=== PATIENT | male | born 1995 | race Caucasian/White ===

== ENCOUNTER 2017-09-30 23:55 | Emergency (ER) | payer OTHER ==
[2017-09-30 23:57] VITALS: BP 148/72; PULSE 99; RESP 18; TEMP 98.6; O2SAT 97
[2017-10-01] MEDS ORDERED: HYDR1SOL20 PO (00:18)
--- NOTE | 2017-10-01 00:18 | PD ---
HPI Chief Complaint: Cold / Flu Symptoms Time Seen by Provider: 00:08 Travel History International Travel<30 days: No Contact w/Intl Traveler<30days: No Traveled to known affect area: No History of Present Illness HPI Patient is a 21-year-old male presenting to the emergency department for evaluation of a cough. Patient states the cough started 7-10 days ago. He denies any fever, chills, nausea, vomiting, headache or shortness of breath. He does report an itchy throat, the cough is worse at night. Patient states he has a history of seasonal allergies. He reports that [employer] normally works for him. He has not trialed this. He has been taking NyQuil at night with no significant improvement. Symptom onset was gradual, symptoms are unrelieved by anything. Unknown exacerbating factors other than lying flat. [facility] Past Medical History Medical History: Denies Significant Hx Diminished Hearing: No Immunizations Current: Yes Past Surgical History Surgical History: No Previous Surgery Social History Alcohol Use: Yes Tobacco Use: No Substance Use: No Allergies-Medications (Allergen,Severity, Reaction): Coded Allergies: No Known Allergies (Unverified , 09/30/17) Reported Meds & Prescriptions Reported Meds & Active Scripts Active No Active Prescriptions or Reported Medications Review of Systems Except as stated in HPI: all other systems reviewed are Neg Respiratory: Positive: Cough Physical Exam Narrative GENERAL: Well-developed, well-nourished, alert male. Presenting in no acute distress. SKIN: Warm and dry. HEAD: Atraumatic. Normocephalic. EYES: Pupils equal and round. No scleral icterus. No injection or drainage. ENT: No nasal bleeding or discharge. Mucous membranes pink and moist. Cobblestone appearance posterior pharynx NECK: Trachea midline. No JVD. CARDIOVASCULAR: Regular rate and rhythm. RESPIRATORY: No accessory muscle use. Clear to auscultation. Breath sounds equal bilaterally. No wheezes, rhonchi, rales noted. GASTROINTESTINAL: Abdomen soft, non-tender, nondistended. Hepatic and splenic margins not palpable. MUSCULOSKELETAL: Extremities without clubbing, cyanosis, or edema. No obvious deformities. NEUROLOGICAL: Awake and alert. No obvious cranial nerve deficits. Motor grossly within normal limits. Five out of 5 muscle strength in the arms and legs. Normal speech. PSYCHIATRIC: Appropriate mood and affect; insight and judgment normal. Data Data Last Documented VS Vital Signs Date Time Temp Pulse Resp B/P (MAP) Pulse Ox O2 Delivery O2 Flow Rate FiO2 09/30/17 23:57 98.6 99 18 148/72 (97) 97 [facility] Medical Decision Making Medical Screen Exam Complete: Yes Emergency Medical Condition: Yes Interpretation(s) Vital Signs Date Time Temp Pulse Resp B/P (MAP) Pulse Ox O2 Delivery O2 Flow Rate FiO2 09/30/17 23:57 98.6 99 18 148/72 (97) 97 Differential Diagnosis Allergic rhinitis versus postnasal drip versus bronchitis versus URI versus other Narrative Course Patient is well-appearing 21-year-old male presenting to emerge for evaluation of a cough. Cough appears most consistent with postnasal drip, allergic rhinitis. Patient has a history of the same. He was encouraged to start Zyrtec , take daily. He was advised that it could take up to 2 weeks of consistent use for medication to be completely effective. He was also encouraged to trial [id number] Sudafed or similar agent, Nasonex or Flonase. He was encouraged to follow-up with his primary doctor or return to emergency department for any new or worsening symptoms. Patient verbalized understanding of instructions. He will be given a short course of oral cough medication for use at night. He was advised not to drive or operate machinery with this. Patient stable for discharge. Diagnosis Primary Impression: Allergic rhinitis Qualified Codes: J30.9 - Allergic rhinitis, unspecified Additional Impression: Cough Referrals: Primary Care Physician Patient Instructions: Acute Cough (ED), Allergic Rhinitis (ED), General Instructions Additional Instructions: Follow-up with your primary doctor Obtain [id number] Sudafed or similar agent use as directed Start Zyrtec or similar agent and use as directed. Consistent, daily use will obtain best result, it may take up to 2 weeks for full effect. Return to emergency department for any new or worsening symptoms Do not drive or operate machinery while taking cough medication Med/Other Pt SpecificInfo: Prescription(s) given Scripts Hydrocodone-Guaifenesin Liq (Flowtuss Liq) 2.5-200 Mg/5 Ml Soln 5 ML PO Q6H Y for COUGH AND COLD SYMPTOMS, #100 ML 0 Refills Prov: Geetha Collier 10/01/17 Disposition: 01 DISCHARGE HOME Condition: Stable Geetha Collier October 01, 2017 00:18
== END 2017-10-01 00:45 | disposition home or self-care (01) ==
LOC: NEPD 23:55
DX: J30.9 Allergic rhinitis, unspecified (principal)
CPT/HCPCS: 99283

== ENCOUNTER 2017-10-08 21:27 | Emergency (ER) | payer OTHER ==
[~2017-10-08 21:27] MED LIST: HYDR1SOL20 PO
[2017-10-08 21:29] VITALS: BP 135/85; PULSE 89; RESP 18; TEMP 98.2; O2SAT 100
[2017-10-08] MEDS ORDERED: PRED-503 PO (22:09)
[2017-10-08] MEDS ORDERED: ZITHTAB PO (22:09)
[2017-10-08] MEDS ORDERED: ALBUAER3 INH (22:09)
--- NOTE | 2017-10-08 22:12 | PD ---
HPI Chief Complaint: Cold / Flu Symptoms Time Seen by Provider: 21:34 Travel History International Travel<30 days: No Contact w/Intl Traveler<30days: No Traveled to known affect area: No History of Present Illness HPI 21-year-old male presents emergency department stating that he was seen in the ER last week and given a prescription but could not afford it. He has been sick now for the last 2-3 weeks. He has had congestion, cough. He has had increasing shortness of breath and some wheezing in the past week. 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 He has intermittent fever. He continues to have cough, congestion, sore throat and hoarse voice. Symptoms are moderate. But can be severe with activity. Some improvement with resting. PFSH Past Medical History Medical History: Denies Significant Hx Diminished Hearing: No Immunizations Current: Yes Past Surgical History Surgical History: No Previous Surgery Social History Alcohol Use: Yes Tobacco Use: No Substance Use: No Allergies-Medications (Allergen,Severity, Reaction): Coded Allergies: No Known Allergies (Unverified , 10/08/17) Reported Meds & Prescriptions Reported Meds & Active Scripts Active Flowtuss Liq (Hydrocodone-Guaifenesin Liq) 2.5-200 Mg/5 Ml Soln 5 Ml PO Q6H PRN Review of Systems Except as stated in HPI: all other systems reviewed are Neg Physical Exam Narrative GENERAL: Well-developed, well-nourished in no acute distress. Nontoxic appearing. Hoarse voice. HEAD: Normocephalic, atraumatic. EYES: Pupils equal round and reactive. Extraocular motions intact. No scleral icterus. No injection or drainage. ENT: TMs clear without erythema. The external auditory canals clear. Nose: clear . Posterior pharynx is mildly erythematous and moist. No tonsillar edema or exudate. Uvula midline. Airway patent. NECK: Trachea midline.Supple, nontender, moves head freely. No central bony tenderness or spasm. CARDIOVASCULAR: Regular rate and rhythm without murmurs, gallops, or rubs. RESPIRATORY: Few scattered rhonchi but no wheezes or rales. GASTROINTESTINAL: Abdomen soft, non-tender, nondistended. No hepato-splenomegaly , or palpable masses. No guarding. EXTREMITIES: No clubbing, cyanosis, or edema. No joint tenderness, effusion, or edema noted. BACK: Nontender without deformity or crepitance. No flank tenderness. Data Data Last Documented VS Vital Signs Date Time Temp Pulse Resp B/P (MAP) Pulse Ox O2 Delivery O2 Flow Rate FiO2 10/08/17 21:29 98.2 89 18 135/85 (102) 100 [facility] Medical Decision Making Medical Screen Exam Complete: Yes Emergency Medical Condition: Yes Medical Record Reviewed: Yes Differential Diagnosis MDM: High Differential diagnoses: Pneumonia, bronchitis, URI, asthma, RAD, legionnaire's disease, SARS, ARDS, influenza, bronchiolitis, RSV,PE,CHF Narrative Course Patient will be treated for bronchitis. Diagnosis Primary Impression: Bronchitis Patient Instructions: General Instructions Additional Instructions: Rest. Increase fluids. Tylenol and Advil. Robitussin-DM. Zithromax, prednisone, and albuterol. Followup with your Dr. in one week. Return to the ER for any problems. Med/Other Pt SpecificInfo: Prescription(s) given Scripts Azithromycin (Zithromax Z-Dharmesh) 250 Mg Dspk 250 MG PO DIRECTED for Infection, #1 DSPK 0 Refills 500 MG (2 tabs) day 1, then 1 tab days 2-5. Prov: Kobi Bonds MD 10/08/17 Prednisone (Deltasone) 20 Mg Tab 20 MG PO BID, #10 TAB 0 Refills Prov: Kobi Bonds MD 10/08/17 Albuterol 8.5 GM Inh (Proair Hfa 8.5 GM Inh) 90 Mcg/Act Aer 2 PUFF INH Q4-6H Y for SHORTNESS OF BREATH, #1 INHALER 0 Refills 108 mcg/actuation Prov: Kobi Bonds MD 10/08/17 Disposition: 01 DISCHARGE HOME Condition: Stable Marshal Manuel October 08, 2017 22:12
== END 2017-10-08 22:33 | disposition home or self-care (01) ==
LOC: NEPD 21:27
DX: J40 Bronchitis, not specified as acute or chronic (principal)
CPT/HCPCS: 99283